=== PATIENT | male | born 1995 | race Hispanic/Latino ===

== ENCOUNTER 2017-02-13 20:56 | Emergency (ER) | payer SELFPAY ==
--- NOTE | 2017-02-14 00:28 | Emergency Department Report ---
ED Back Pain/Injury HPI - General Chief Complaint: Back Pain/Injury Stated Complaint: CP/MELITON/BACK PAIN Time Seen by Provider: 02/14/17 00:09 Source: patient Limitations: No Limitations - History of Present Illness Initial Comments: This is a 22-year-old nontoxic, well nourished in appearance, no acute signs of distress presents to the ED complaining of back pain 2 months. They stated he was jumping on a couch that had no cushion and landed on his thoracic spine. Patient denies any numbness, tingling, fever, chills, chest pain, shortness of breath, stiff neck, headache, head trauma, loss consciousness, nausea or vomiting. Patient stated back pain does radiate to the chest but denies any chest pain. Denies any drug allergies or past medical history. MD Complaint: back pain -: Gradual, month(s) (2) Similar Symptoms Previously: No Place: home Radiation: other (chest) Severity: moderate Severity scale (0 -10): 8 Quality: aching Consistency: constant Improves With: none Worsens With: none Context: fall Associated Symptoms: denies other symptoms. denies: confusion, weakness, chest pain, numbness, difficulty walking, cough, difficulty urinating, diaphoresis, incontinence, fever/chills, constipation, headaches, abdominal pain, loss of appetite, malaise, nausea/vomiting, rash, seizure, shortness of breath, syncope - Related Data Previous Rx's Medication Instructions Recorded Last Taken Type Ibuprofen [Motrin 600 MG tab] 600 mg PO Q8H PRN #30 tablet 02/14/17 Unknown Rx Allergies Allergy/AdvReac Type Severity Reaction Status Date / Time No Known Allergies Allergy Verified 02/13/17 21:36 ED Review of Systems ROS: Stated complaint: CP/MELITON/BACK PAIN Other details as noted in HPI Constitutional: denies: chills, fever Eyes: denies: eye pain, eye discharge, vision change ENT: denies: ear pain, throat pain Respiratory: denies: cough, shortness of breath, wheezing Cardiovascular: denies: chest pain, palpitations Endocrine: no symptoms reported Gastrointestinal: denies: abdominal pain, nausea, diarrhea Genitourinary: denies: urgency, dysuria Musculoskeletal: denies: back pain, joint swelling, arthralgia Skin: denies: rash, lesions Neurological: denies: headache, weakness, paresthesias Psychiatric: denies: anxiety, depression Hematological/Lymphatic: denies: easy bleeding, easy bruising ED Past Medical Hx - Past Medical History Previous Medical History?: No - Surgical History Past Surgical History?: No - Social History Smoking Status: Current Every Day Smoker Substance Use Type: Alcohol, Marijuana, Methamphetamines - Medications Home Medications: Home Medications Medication Instructions Recorded Confirmed Last Taken Type Ibuprofen [Motrin 600 MG tab] 600 mg PO Q8H PRN #30 tablet 02/14/17 Unknown Rx ED Physical Exam - General Limitations: No Limitations General appearance: alert, in no apparent distress - Head Head exam: Present: atraumatic, normocephalic, normal inspection - Eye Eye exam: Present: normal appearance, PERRL, EOMI. Absent: scleral icterus, conjunctival injection, nystagmus, periorbital swelling, periorbital tenderness Pupils: Present: normal accommodation - ENT ENT exam: Present: normal exam, normal orophraynx, mucous membranes moist, TM's normal bilaterally, normal external ear exam - Neck Neck exam: Present: normal inspection, full ROM. Absent: tenderness, meningismus, lymphadenopathy, thyromegaly - Respiratory Respiratory exam: Present: normal lung sounds bilaterally. Absent: respiratory distress, wheezes, rales, rhonchi, stridor, chest wall tenderness, accessory muscle use, decreased breath sounds, prolonged expiratory - Cardiovascular Cardiovascular Exam: Present: regular rate, normal rhythm, normal heart sounds. Absent: systolic murmur, diastolic murmur, rubs, gallop - GI/Abdominal GI/Abdominal exam: Present: soft, normal bowel sounds. Absent: distended, tenderness, guarding, rebound, rigid, diminished bowel sounds - Rectal Rectal exam: Present: deferred - Extremities Exam Extremities exam: Present: normal inspection, full ROM, normal capillary refill. Absent: tenderness, pedal edema, joint swelling, calf tenderness - Back Exam Back exam: Present: normal inspection, full ROM, paraspinal tenderness ( thoracic region), vertebral tenderness ( thoracic region). Absent: tenderness, CVA tenderness (R), CVA tenderness (L), muscle spasm, rash noted - Expanded Back Exam Expanded Back exam: Present: normal rectal tone. Absent: saddle anesthesia Back exam: Negative Straight Leg Raising: Left, Right - Neurological Exam Neurological exam: Present: alert, oriented X3, CN II-XII intact, normal gait, reflexes normal - Psychiatric Psychiatric exam: Present: normal affect, normal mood - Skin Skin exam: Present: warm, dry, intact, normal color. Absent: rash ED Course Vital Signs 02/13/17 21:36 Temperature 99.5 F Pulse Rate 96 H Respiratory 20 Rate Blood Pressure 144/86 O2 Sat by Pulse 99 Oximetry - Reevaluation(s) Reevaluation #1: 02/14/17 00:30 Patient is speaking in full sentences with no signs of distress noted. - Consultations Consultation #1: 02/14/17 00:32 Dr. Rosario was consulted about patients history, physical exam, EKG, and lab results. Agrees to the d/c plan of care with f/u. ED Medical Decision Making - Medical Decision Making 22-year-old male that presents with thoracic spinal back pain that radiates to chest. Patient is stable. Patient was examined myself. EKG obtained with sinus tachycardia and possible left atrial enlargement. Chest and ribs x-ray has been obtained with negative findings of any abnormalities. CBC, BMP, troponin, and cardiac CK has been obtained with all normal results. Patient was notified to follow-up with a primary care doctor/domain architect in 24 hours due to abnormal EKG or if symptoms such as chest pain, shortness of breath, difficult breathing, or any abnormal symptoms return to emergency room as soon as possible. Patient received ibuprofen 600 mg by mouth in the ED. At time time of discharge, the patient does not seem toxic or ill in appearance. No acute signs of distress noted. Patient agrees to discharge treatment plan of care. No further questions noted by the patient. Critical care attestation.: If time is entered above; I have spent that time in minutes in the direct care of this critically ill patient, excluding procedure time. ED Disposition Clinical Impression: Back pain Qualifiers: Back pain location: thoracic back pain Chronicity: acute Back pain laterality: unspecified Qualified Code(s): M54.6 - Pain in thoracic spine Disposition: - TO HOME OR SELFCARE Is pt being admited?: No Does the pt Need Aspirin: No Condition: Stable Instructions: Back Pain (ED), Ibuprofen (By mouth) Additional Instructions: follow-up with a primary care doctor/domain architect in 24 hours due to abnormal EKG or if symptoms such as chest pain, shortness of breath, difficult breathing , or any abnormal symptoms return to emergency room as soon as possible. Prescriptions: Ibuprofen [Motrin 600 MG tab] 600 mg PO Q8H PRN #30 tablet PRN Reason: Pain Referrals: PRIMARY CARE, [Primary Care Provider] - 3-5 Days ANDREA AKINS MD [Staff Physician] - 3-5 Days PANTERA HO MD [Staff Physician] - 3-5 Days [facility] [Outside] - 3-5 Days [facility] [place] [Outside] - 3-5 Days Forms: Work/School Release Form(ED)
[2017-02-14 01:07] LABS: Basophils % (Auto) 0.7 % (0.0-1.8); Eosinophils % (Auto) 0.6 % (0.0-4.3); Hematocrit 48.2 % (35.5-45.6); Hemoglobin 16.4 gm/dl (11.8-15.2); Mean Corpuscular HGB Conc 34 % (32-34); Mean Corpuscular Hemoglobin 33 pg (28-32); Mean Corpuscular Volume 98 fl (84-94); Red Blood Count 4.91 M/mm3 (3.65-5.03); Red Cell Distribution Width 13.3 % (13.2-15.2); White Blood Count 7.2 K/mm3 (4.5-11.0)
[2017-02-14 01:17] LABS: Platelet Count 298 K/mm3 (140-440)
--- NOTE | 2017-02-14 01:23 | XRay Report ---
FINAL REPORT EXAM: XR SPINE THORACIC 3V HISTORY: THORACIC BACK PAIN COMPARISON: None available. FINDINGS: Three views of the thoracic spine obtained. Thoracic vertebral body heights and disc heights are preserved. Pedicles are intact. Normal kyphotic curvature. Tiny calcified granulomas at the lung apices. IMPRESSION: Normal height and alignment of the thoracic spine.
--- NOTE | 2017-02-14 01:24 | XRay Report ---
FINAL REPORT EXAM: XR RIBS BILAT W/PA CHEST 4+V HISTORY: chest pain COMPARISON: None available. FINDINGS: Single frontal view of the chest and three views of the bilateral ribs obtained. Heart normal in size. Lungs are clear. No pneumothorax. Bilateral ribs are grossly intact. No step-off deformity. IMPRESSION: Lungs are clear. Bilateral ribs are grossly intact.
[2017-02-14 01:31] LABS: Creatine Kinase MB 1.6 ng/mL (0.0-4.0)
[2017-02-14 01:35] LABS: Anion Gap 20 mmol/L; BUN/Creatinine Ratio 6.25; Blood Urea Nitrogen 5 mg/dL (9-20); Calcium 9.2 mg/dL (8.4-10.2); Carbon Dioxide 23 mmol/L (22-30); Chloride 101.6 mmol/L (98-107); Creatine Kinase 282 units/L (55-170); Glucose 98 mg/dL (75-100); Potassium 3.8 mmol/L (3.6-5.0); Sodium 141 mmol/L (137-145)
[2017-02-14 01:54] VITALS: BP 135/86
== END 2017-02-14 01:54 | disposition home or self-care (01) ==
LOC: ED 20:56
DX: M54.6 Pain in thoracic spine (principal); F17.210 Nicotine dependence, cigarettes, uncomplicated; F12.10 Cannabis abuse, uncomplicated; F15.10 Other stimulant abuse, uncomplicated
CPT/HCPCS: 36415; 71111; 72072; 80048; 82550; 82553; 84484; 85025; 93005; 93010; 99284

== ENCOUNTER 2017-12-11 14:54 | Emergency (ER) | payer OTHER ==
[2017-12-11] MEDS ORDERED: XYLOCAINE 2% INFILTRATI ONE (16:55)
[2017-12-11] MEDS ORDERED: NORCO 5/325 PO ONE (16:56)
--- NOTE | 2017-12-11 16:57 | Emergency Department Report ---
ED Laceration HPI - HPI Chief Complaint: Wound/Laceration Stated Complaint: CUT ON FINGER Time Seen by Provider: 12/11/17 16:37 Occurred When: Today Location: Upper Extremity (left third digit) Severity: severe Tetanus Status: Not up to Date Laceration Symptoms: Yes Numbness, Yes Pain, No Foreign Body Sensation, No Weakness Other History: This is a 22-year-old male presents with a laceration to third distal finger into nail. The patient was cutting grass earlier today and while cleaning the bag out the blade cut the tip of his third finger. He wrapped the wound in his shoulder and came directly to the emergency room for evaluation. Patient is unsure of the last time he received a tetanus vaccination. There is active bleeding and patient admits to having severe pain. Pain is 10 out of 10 on pain scale and worse with movement. He is able to move finger with full range of motion. Denies swelling, LOC, chest pain, and fever. ED Review of Systems ROS: Stated complaint: CUT ON FINGER Other details as noted in HPI Constitutional: denies: chills, fever Respiratory: denies: cough, shortness of breath, wheezing Cardiovascular: denies: chest pain, palpitations Gastrointestinal: denies: abdominal pain, nausea, diarrhea Skin: lesions. denies: rash (laceration to third distal digit) Neurological: numbness. denies: headache, weakness, paresthesias Psychiatric: denies: anxiety, depression ED Past Medical Hx - Past Medical History Previous Medical History?: No - Surgical History Past Surgical History?: No - Social History Smoking Status: Current Every Day Smoker Substance Use Type: None - Medications Home Medications: Home Medications Medication Instructions Recorded Confirmed Last Taken Type Ibuprofen [Motrin 600 MG tab] 600 mg PO Q8H PRN #30 tablet 02/14/17 Unknown Rx Sulfamethoxazole/Trimethoprim 1 each PO BID 7 Days #14 tablet 12/11/17 Unknown Rx [Bactrim DS TAB] traMADol [Ultram 50 MG tab] 50 mg PO Q6HR PRN #15 tablet 12/11/17 Unknown Rx Laceration Physical Exam - Exam General: Vital signs noted. No distress. Alert and acting appropriately. Wound Length (cm): 2 Laceration Location: Upper Extremity Full Body Front + Back: 1 - 2 cm laceration into tendon and nail bed of 3rd distal phalanx, bleeding, FROM, and swelling Laceration Exam: Yes Exposed Tendon, Vessel, or Nerve, Yes Tendon Injury, Yes Normal Distal CMS, No Foreign Body ED Course Vital Signs 12/11/17 15:07 Temperature 98.8 F Pulse Rate 84 Respiratory 16 Rate Blood Pressure 127/69 O2 Sat by Pulse 97 Oximetry - Laceration /Wound Repair Left Posterior Distal Finger Wound Location: upper extremity Wound Length (cm): 2 Wound's Depth, Shape: into muscle, irregular, flap, nail-avulsed Wound Explored: no foreign body removed Irrigated w/ Saline (ccs): 2 Betadine Prep?: Yes Anesthesia: 1% Lidocaine (2% lidocaine without epi) Volume Anesthetic (ccs): 2 Wound Repaired With: sutures Suture Size/Type: 5:0 Number of Sutures: 4 Layer Closure?: No Sterile Dressing Applied?: Yes ED Medical Decision Making - Radiology Data Radiology results: report reviewed PROCEDURE: XR FINGER(S) 2+V LT TECHNIQUE: Left 3rd finger, three views HISTORY: laceration distal 3rd phalanx COMPARISON: No prior studies are available for comparison. FINDINGS: There is soft tissue irregularity. There is a defect of the tuft of the distal phalanx. There is also linear lucency through the lateral base of the 3rd distal phalanx, compatible with a nondisplaced fracture. IMPRESSION: Fracture through the tuft of the 3rd distal phalanx. There is also a linear fracture line seen through lateral base of the 3rd distal phalanx. Overlying skin defect - Medical Decision Making This is a 22 y.o. male presents with left 3rd digit laceration from this evening. Patient examined by me. Vital signs normal and patient is in no acute distress. X-ray of left hand obtained and Fracture through the tuft of the 3rd distal phalanx. There is also a linear fracture line seen through lateral base of the 3rd distal phalanx. Overlying skin defect. Patient is non-toxic appearing and stable. Laceration closed with 4 sutures, review note. Given tetanus vaccination and [place] 5/325 mg by mouth once while leaving ER. Discharged home for outpatient treatment with bactrim. Discussed ER care plan with patient. Patient agreed with plan. F/ U with PCP in 2-[address] Guo orthopedic surgery. Critical care attestation.: If time is entered above; I have spent that time in minutes in the direct care of this critically ill patient, excluding procedure time. ED Disposition Clinical Impression: Laceration of finger of left hand with damage to nail Qualifiers: Encounter type: initial encounter Finger: middle finger Foreign body presence: without foreign body Qualified Code(s): S61.313A - Laceration without foreign body of left middle finger with damage to nail, initial encounter Disposition: TO HOME OR SELFCARE Is pt being admited?: No Does the pt Need Aspirin: No Condition: Stable Instructions: Suture Care (ED), Laceration (ED) Additional Instructions: Take antibiotics as prescribed for the full course. Avoid drinking alcohol all while taking antibiotics and for up to 24 hours after completion. Keep wound dry and clean for 48 hours. Avoid putting to much tension on wound site. Prop arm up on pillows to decrease swelling. Follow up with Primary Care Provider and orthopedics in 2-3 days. Have sutures removed in 7 days by primary care provider or in ER. Return to ER if red, swollen, foul discharge, or fever. Prescriptions: Sulfamethoxazole/Trimethoprim [Bactrim DS TAB] 1 each PO BID 7 Days #14 tablet traMADol [Ultram 50 MG tab] 50 mg PO Q6HR PRN #15 tablet PRN Reason: Pain Referrals: PRUDENCIO GUO MD [Staff Physician] - 3-5 Days [facility] [Outside] - 3-5 Days Time of Disposition: 18:16 Print Language: TAJIK
--- NOTE | 2017-12-11 17:24 | XRay Report ---
FINAL REPORT PROCEDURE: XR FINGER(S) 2+V LT TECHNIQUE: Left 3rd finger, three views HISTORY: laceration distal 3rd phalanx COMPARISON: No prior studies are available for comparison. FINDINGS: There is soft tissue irregularity. There is a defect of the tuft of the distal phalanx. There is also linear lucency through the lateral base of the 3rd distal phalanx, compatible with a nondisplaced fracture. IMPRESSION: Fracture through the tuft of the 3rd distal phalanx. There is also a linear fracture line seen through lateral base of the 3rd distal phalanx. Overlying skin defect
[2017-12-11] MEDS ORDERED: BOOSTRIX IM ONE (18:18)
[2017-12-11 18:44] VITALS: BP 121/70
== END 2017-12-11 18:41 | disposition home or self-care (01) ==
LOC: ED 14:54
DX: S61.213A Laceration without foreign body of left middle finger without damage to nail, initial encounter (principal); F17.200 Nicotine dependence, unspecified, uncomplicated; W45.8XXA Other foreign body or object entering through skin, initial encounter; Y93.89 Activity, other specified; Y92.89 Other specified places as the place of occurrence of the external cause; Y99.8 Other external cause status
CPT/HCPCS: 90471; 90715

== ENCOUNTER 2018-09-12 17:06 | Emergency (ER) | payer SELFPAY ==
[2018-09-12 17:29] VITALS: BP 143/93
[2018-09-12] MEDS ORDERED: MOTRIN PO ONE ×2 (17:34→17:36)
--- NOTE | 2018-09-12 17:34 | Emergency Department Report ---
Blank Doc - Documentation Documentation: Patient reports right rib pain that started 2 weeks ago. He reports that he fell out of a chait 2 weeks ago because he was drinking. Fell and hit rt rib cage.Pain worst with coughing. Denies coughing up blood Chest/Lungs: TTP posterior rib cage. No ecchymosis. Lungs CTA A/P Right rib pain due to fall RT rib series inc. PA chest Motrin- given
--- NOTE | 2018-09-12 18:38 | XRay Report ---
PROCEDURE: XR RIBS UNI W PA CHEST 3+V RT TECHNIQUE: PA view of the chest and 4 views of the right ribs HISTORY: fall and hit rt rib cage COMPARISONS: None . FINDINGS: There is no evidence for acute rib fracture or other bony pathologic abnormality in the right ribs. On the chest film, the lungs are clear without evidence for infiltrate, effusion, or pneumothorax. Th e cardiomediastinal silhouette is normal . IMPRESSION: No acute abnormality in the right ribs or chest. This document is electronically signed by Yumiko Ellington MD., September 12 2018 06:36:22 PM ET
[2018-09-12] MEDS ORDERED: TORADOL IM ONE (18:49)
--- NOTE | 2018-09-12 18:53 | Emergency Department Report ---
ED Back Pain/Injury HPI - General Chief Complaint: Abdominal Pain Stated Complaint: RIB PAIN Time Seen by Provider: 09/12/18 17:31 Source: patient Limitations: No Limitations - History of Present Illness Initial Comments: Patient is a 23-year-old male who fell and hit his right side on a chair 2 weeks ago. He states that since then his right lower anterior ribs up and hurting. [id number] meds have not helped. Patient has no fever. He is guarded on respirations but taking deep breaths. He has no fever. He has no dysuria. No back pain. He denies seeing any hematuria. NO OTHER INJURY AND AMBULATORY PMH NONE PSH NONE RX NONE - Related Data Previous Rx's Medication Instructions Recorded Last Taken Type predniSONE [Deltasone] 20 mg PO DAILY #5 tablet 09/12/18 Unknown Rx Allergies Allergy/AdvReac Type Severity Reaction Status Date / Time No Known Allergies Allergy Verified 02/13/17 21:36 ED Review of Systems ROS: Stated complaint: RIB PAIN Other details as noted in HPI Comment: All other systems reviewed and negative Constitutional: denies: see HPI Eyes: denies: as per HPI ENT: denies: as per HPI Respiratory: denies: see HPI Cardiovascular: denies: as per HPI Endocrine: denies: flushing Gastrointestinal: denies: as per HPI Genitourinary: denies: dysuria Musculoskeletal: as per HPI, back pain Skin: denies: rash Neurological: denies: weakness Psychiatric: denies: depression ED Past Medical Hx - Past Medical History Medical history: no medical history ED Back Pain Physical Exam - Exam General: Vital signs noted. No distress. Alert and acting appropriately. Back/Abdomen: No Abdominal Tenderness, No Perithoracic Tenderness, No Perilumbar Tenderness, No Sacroiliac Tenderness, No Flank Tenderness, No Straight Leg Raise Pain Neuro: Yes Normal Sensation, Yes Normal DTR's, Yes Normal Gait, No Motor Weakness ED Course Vital Signs 09/12/18 17:28 Temperature 98.6 F Pulse Rate 99 H Respiratory 16 Rate Blood Pressure 143/93 O2 Sat by Pulse 99 Oximetry Ed Back Pain Tests - Tests Tests: Normal UA ED Medical Decision Making - Radiology Data Radiology results: report reviewed, image reviewed NAP - Medical Decision Making XRAY NEG Vital Signs 09/12/18 17:28 Temperature 98.6 F Pulse Rate 99 H Respiratory 16 Rate Blood Pressure 143/93 O2 Sat by Pulse 99 Oximetry TAKING DEEP BREATHS LUNGS CTA VSS AMBULATORY NO FEVER NO DYSURIA DC HOME WITH DC POC Critical care attestation.: If time is entered above; I have spent that time in minutes in the direct care of this critically ill patient, excluding procedure time. ED Disposition Clinical Impression: Rib pain on right side Disposition: DC-01 TO HOME OR SELFCARE Is pt being admited?: No Does the pt Need Aspirin: No Condition: Stable Instructions: Costochondritis (ED), Contusion in Adults (ED) Additional Instructions: ALTERNATE WARM AND COOL COMPRESSES TYLENOL OR MOTRIN FOR PAIN DIET AND ACTIVITY TOLERATED KEEP TAKING DEEP BREATHS FOLLOW UP PCP IF PERSISTS REFERRAL BELOW [facility] - [facility]-5 Days Time of Disposition: 18:52
== END 2018-09-12 19:08 | disposition home or self-care (01) ==
LOC: ED 17:06
DX: R07.81 Pleurodynia (principal)
CPT/HCPCS: 71101; 96372; 99283; J1885